=== PATIENT | female | born 1945 | race Caucasian/White ===

== ENCOUNTER 2016-11-09 09:47 | Observation (INO) | payer MEDICARE, OTHER ==
[~2016-11-09] VITALS: Ht 172.7 cm; Wt 71.7 kg
[2016-11-09] MEDS: SODIUM CHLORIDE 0.9% 1,000 ML IV SCH ×2 (10:10→20:14)
[2016-11-09 10:29] VITALS: BP 128/68
[2016-11-09] MEDS ORDERED: CEFAZOLIN PMX 1GM/50ML 50 ML IVPB ONE (10:30)
[2016-11-09] MEDS ORDERED: LIDOCAINE 2%, 20ML ONE (10:43)
[2016-11-09] MEDS ORDERED: CEFAZOLIN PMX 1GM/50ML 50 ML ONE (10:43)
[2016-11-09] MEDS ORDERED: FENTANYL PF 100 MCG/2ML ONE (10:43)
[2016-11-09] MEDS ORDERED: MIDAZOLAM 1 MG/ML, 5ML ONE (10:43)
[2016-11-09] MEDS ORDERED: CEFAZOLIN 1,000 MG ONE (10:43)
[2016-11-09] MEDS ORDERED: MULT-6 PO (10:49)
[2016-11-09] MEDS ORDERED: ARMO250T4 PO (10:49)
[2016-11-09] MEDS ORDERED: BUPR1PAT EXT (10:49)
[2016-11-09] MEDS ORDERED: LEVO75TA PO (10:49)
[2016-11-09] MEDS ORDERED: CELE200C PO (10:49)
[2016-11-09] MEDS ORDERED: LOSA50TA6 PO (10:49)
[2016-11-09] MEDS ORDERED: BUPR-86 PO (10:49)
[2016-11-09] MEDS ORDERED: ESTROGEN SUPPLEMENT PO (10:49)
[2016-11-09] MEDS ORDERED: DULO60CA7 PO (10:49)
[2016-11-09] MEDS ORDERED: TEMA15CA6 PO (10:49)
[2016-11-09] MEDS ORDERED: ARIP5TAB6 PO (10:49)
[2016-11-09 10:54] LABS: ASPARTATE AMINO TRANSFERASE 26 U/L (15-37); BLOOD UREA NITROGEN 22 mg/dL (7-18)
[2016-11-09] MEDS ORDERED: PLEASE ENTER ALLERGIES MC SCH ×2 (11:00)
[2016-11-09] MEDS ORDERED: ZOLPIDEM 5MG TABLET PO PRN (12:30)
[2016-11-09 12:35] VITALS: BP 134/82
[2016-11-09] MEDS ORDERED: TEMAZEPAM 15 MG CAPSULE PO PRN (13:00)
[2016-11-09] MEDS: HYDROcodone/APAP 5/325 TABLET PO PRN ×2 (14:15→15:13)
[2016-11-09] MEDS: CEFAZOLIN PMX 1GM/50ML 50 ML IVPB SCH (16:25)
[2016-11-09 20:39] VITALS: BP 112/71
[2016-11-09] MEDS ORDERED: SODIUM CHLORIDE FLUSH 10ML SYR IVF SCH (21:00)
[2016-11-10] MEDS: CEFAZOLIN PMX 1GM/50ML 50 ML IVPB SCH (00:35)
[2016-11-10] MEDS: HYDROcodone/APAP 5/325 TABLET PO PRN ×4 (00:51→07:58)
[2016-11-10 00:52] VITALS: BP 124/80
[2016-11-10] MEDS: SODIUM CHLORIDE 0.9% 1,000 ML IV SCH (02:10)
[2016-11-10] MEDS ORDERED: LEVOTHYROXINE 75 MCG TABLET PO SCH (06:00)
[2016-11-10] MEDS ORDERED: LOSARTAN 50MG TABLET PO SCH (09:00)
[2016-11-10] MEDS ORDERED: BUPROPION SR 150 MG TABLET PO SCH (09:00)
[2016-11-10] MEDS ORDERED: ARIPIPRAZOLE 5 MG TABLET PO SCH (09:00)
[2016-11-10] MEDS ORDERED: MULTIVITAMIN 1 TABLET PO SCH (09:00)
[2016-11-10] MEDS ORDERED: DULOXETINE 30 MG CAPSULE.DR PO SCH (09:00)
[2016-11-10 09:26] VITALS: BP 102/67
[2016-11-10] MEDS ORDERED: HYDR-3240 PO (10:03)
[2016-11-10 10:08] VITALS: BP 119/77
[2016-11-13] MEDS ORDERED: BUTRANS TP SCH (09:00)
== END 2016-11-10 13:21 | disposition home or self-care (01) ==
LOC: CACL 09:47 → ORIP 12:07 → 5SO 12:39 → DCLOUNGE 11-10 12:08
PROVIDERS: ADMIT Internal Medicine Cardiovascular Disease; ATTEND Internal Medicine Cardiovascular Disease
DX: I49.5 Sick sinus syndrome (principal); I10 Essential (primary) hypertension; K21.9 Gastro-esophageal reflux disease without esophagitis
CPT/HCPCS: 33208; 36415; 71010; 71020; 80053; 85025; 85610; 96365; 96366; C1779; C1785; C1892; G0378; J0690; J2250; J3010; J3490